=== PATIENT | male | born 1965 | race Caucasian/White ===

== ENCOUNTER → 2019-02-01 | Outpatient (CLI) | payer OTHER ==
--- NOTE | 2019-02-02 08:34 | MR ---
EXAMINATION TYPE: MR lumbar spine wo con DATE OF EXAM: 02/01/2019 COMPARISON: None HISTORY: Low back pain TECHNIQUE: Multiplanar, multisequence images of the lumbar spine were acquired. L1-L2: Normal disc appearance without desiccation. No herniation, protrusion or disc bulging. No ca nal stenosis is present. Foramina are patent bilaterally. L2-L3: Posterior extension endplate disc complex causes mild anterior mass effect on the thecal sac. No significant central stenosis or foraminal encroachment. L3-L4: Posterior extension endplate disc complex causes anterior effacement of the thecal sac. No sig nificant central stenosis or foraminal encroachment. There is some mild facet arthropathy. L4-L5: Loss of disc height and signal is present, posterior extension endplate disc complex causes mi ld anterior mass effect on the thecal sac. Facet arthropathy with hypertrophy of ligamentum flavum is present. No significant foraminal encroachment or central stenosis. L5-S1: There is a left posterior paracentral disc herniation extending posterior to the S1 vertebral body, anterolateral mass effect on the thecal sac is noted, there is likely mass effect on the left S 1 nerve root. No significant spinal stenosis. Loss of disc height and signal is compatible with disc desiccation. There is spondylosis present. Vacuum phenomenon also suspected along the disc space. The re is some mild facet arthropathy. Lumbar segments are intact. No paraspinal masses are identified. Conus medullaris has a normal appe arance. Lumbar vertebral bodies show preserved height and alignment. There is multilevel spondylosis, endplate discogenic marrow signal change. Tarlov cyst noted posterior to the sacrum. Loss of disc he ight signal greatest at L4-5 but also present at L3-4, L2-3. IMPRESSION: Disc herniation as described, correlate for left S1 radiculopathy. Degenerative disc disease and face t arthropathy.
== END ==
LOC: RADMRIMAIN 19:23
PROVIDERS: ATTEND Physical Medicine & Rehabilitation
DX: M51.17 Intervertebral disc disorders with radiculopathy, lumbosacral region (principal); M51.26 Other intervertebral disc displacement, lumbar region; M51.37 Other intervertebral disc degeneration, lumbosacral region; M46.96 Unspecified inflammatory spondylopathy, lumbar region
CPT/HCPCS: 72148